=== PATIENT | female | born 1965 | race Caucasian/White ===

== ENCOUNTER → 2017-01-30 | Outpatient (CLI) | payer OTHER | LOC: RAD 10:53 | DX: Z12.31 Encounter for screening mammogram for malignant neoplasm of breast (principal) ==

== ENCOUNTER → 2019-02-11 | Outpatient (CLI) | payer OTHER | LOC: RAD 09:40 | DX: Z12.31 Encounter for screening mammogram for malignant neoplasm of breast (principal) ==

== ENCOUNTER → 2019-02-13 | Outpatient (CLI) | payer OTHER | LOC: ULTRA 14:03 | DX: N63.10 Unspecified lump in the right breast, unspecified quadrant (principal) ==